=== PATIENT | female | born 1975 | race Caucasian/White ===

== ENCOUNTER → 2016-06-30 | Outpatient (CLI) | payer OTHER ==
[~2016-06-30] MED LIST: CEFD1CAP14 PO; CITA40TA12 PO; CLON0.5T3 PO; SYN25 PO; [UNRECOGNIZED DRUG - OTHER] PO
--- NOTE | 2016-06-30 10:05 | DIAGNOSTIC IMAGING REPORT ---
EXAMINATION: RENAL ULTRASOUND CLINICAL HISTORY: Recurrent urinary tract infection COMPARISON STUDY: None FINDINGS: The right kidney measures 10.2 cm. The left kidney measures 9.7 cm. There is no evidence of hydronephrosis. There are no renal masses. No bladder abnormalities are visualized. Bilateral ureteral jets were visualized. IMPRESSION : Normal study Electronically signed by: Charles Loaiza M.D. 06/30/2016 10:04 AM Dictated Date/Time: 06/30/2016 10:03 AM
== END | disposition home or self-care (01) ==
LOC: C.ULTR 09:15
PROVIDERS: ATTEND Nurse Practitioner Adult Health
DX: N39.0 Urinary tract infection, site not specified (principal)

== ENCOUNTER → 2016-07-01 | Outpatient (CLI) | payer OTHER ==
[2016-07-01 09:33] LABS: BASO % 0.2 %; BASO ABS # 0.01 K/uL (0-0.2); COMPLETE YES; EOS % 2.8 %; HEMATOCRIT 40.6 % (37-47); LYMPH % 34.9 %; LYMPH ABS # 1.86 K/uL (1.2-3.4); MEAN CELL VOLUME 94.4 fL (80-100); MEAN CORPUSCULAR HEMOGLOBIN 31.6 pg (25-34); MEAN CORPUSCULAR HGB CONC 33.5 g/dl (32-36); MEAN PLATELET VOLUME 10.6 fL (7.4-10.4); MONO % 11.3 %; NEUT % 50.8 %; PLATELET COUNT 271 K/uL (130-400); WHITE BLOOD COUNT 5.33 K/uL (4.8-10.8)
[2016-07-01 09:41] LABS: ALT/SGPT 20 U/L (12-78); BLOOD UREA NITROGEN 9 mg/dl (7-18); BUN/CREATININE RATIO 11.3 (10-20); CALCIUM 8.5 mg/dl (8.5-10.1); CARBON DIOXIDE 27 mmol/L (21-32); CHLORIDE 107 mmol/L (98-107); CHOLESTEROL 180 mg/dl (0-200); CREATININE 0.77 mg/dl (0.60-1.20); GLUCOSE 88 mg/dl (70-99); POTASSIUM 3.8 mmol/L (3.5-5.1); SODIUM 143 mmol/L (136-145)
[2016-07-01 09:51] LABS: ALKALINE PHOSPHATASE 51 U/L (45-117); AST/SGOT 14 U/L (15-37); CHOLESTEROL/HDL RATIO 1.7; HDL CHOLESTEROL 105 mg/dl; LDL CHOLESTEROL CALCULATED 65 mg/dl; TRIGLYCERIDES 49 mg/dl (0-150); VERY LOW DENSITY LIPOPROT CALC 10 mg/dl
[2016-07-01 09:55] LABS: PROLACTIN 29.12 ng/mL
[2016-07-01 10:13] LABS: URINE APPEARANCE TURBID (CLEAR); URINE BILIRUBIN NEG (NEG); URINE COLOR DK YELLOW; URINE EPITHELIAL CELL AUTO >30 /lpf (0-5); URINE NITRITE NEG (NEG); URINE SPECIFIC GRAVITY 1.027 (1.000-1.030); UROBILINOGEN NEG (NEG)
[2016-07-01 10:16] LABS: MANUAL MICROSCOPIC REQUIRED? NO; REVIEW REQ? NO
== END | disposition home or self-care (01) ==
LOC: C.LAB1850 07:37
PROVIDERS: ATTEND Nurse Practitioner Adult Health
DX: N39.0 Urinary tract infection, site not specified (principal); E03.9 Hypothyroidism, unspecified; Z31.41 Encounter for fertility testing

== ENCOUNTER → 2016-07-07 | Outpatient (CLI) | payer OTHER ==
--- NOTE | 2016-07-07 10:46 | DIAGNOSTIC IMAGING REPORT ---
HYSTEROSALPINGOGRAM CLINICAL HISTORY: Fertility testing. COMPARISON STUDY: No priors. FINDINGS: Fluoroscopic assistance was provided to the guide dog mobility instructor in performing a hysterosalpingogram. The uterine cavity distends normally. No filling defects are identified. There is normal filling of the fallopian tubes, with free spillage of contrast into pelvis bilaterally. Fluoroscopy time: 0.3 minutes. IMPRESSION: Unremarkable hysterosalpingogram. The fallopian tubes are widely patent bilaterally. Electronically signed by: Elmer Talamantes M.D. 07/07/2016 10:45 AM Dictated Date/Time: 07/07/2016 10:44 AM
--- NOTE | 2016-07-08 09:39 | OPERATIVE REPORT ---
DATE OF OPERATION: 07/08/2016 PREOPERATIVE DIAGNOSIS: Infertility. POSTOPERATIVE DIAGNOSIS: Same. PROCEDURE: Hysterosalpingogram. SURGEON: Dr. Vallecillo. PROCEDURE: The patient was met in the radiology suite where she was identified verbally and by casey. She was asked if she had taken her preoperative antibiotics and she had not. I discussed the patient with Jimmy Finney and he was okay with us proceeding. Verbal consent was obtained for the procedure. The patient was placed in the supine position in frogleg fashion. We needed to put her bottom on a pad in order to place the speculum because her cervix was quite anterior. Cervix was cleaned with Betadine. The anterior lip was grasped with an Allis and the catheter was introduced into the cervix. The radiologist was then called for. The radiopaque dye was then inserted into the uterus. The uterine cavity appeared normal. There was bilateral fill and spill and normal appearing tubes. The procedure was terminated. The instruments were removed from the vagina and hemostasis was noted to be excellent. The patient tolerated the procedure well and was sent home. She was advised to take her antibiotics. She was given precautions to call should she have problems. I attest to the content of the Intraoperative Record and any orders documented therein. Any exceptio ns are noted below.
== END | disposition home or self-care (01) ==
LOC: C.RAD 09:56
PROVIDERS: ATTEND Obstetrics & Gynecology
DX: Z31.41 Encounter for fertility testing (principal)

== ENCOUNTER → 2016-08-17 | Outpatient (CLI) | payer OTHER | END | disposition home or self-care (01) | LOC: C.LAB1850 13:40 | PROVIDERS: ATTEND Obstetrics & Gynecology | DX: R79.9 Abnormal finding of blood chemistry, unspecified (principal) ==

== ENCOUNTER 2016-11-30 18:19 | Emergency (ER) | payer OTHER ==
[~2016-11-30] VITALS: Ht 175.3 cm; Wt 75.0 kg
[~2016-11-30 18:19] MED LIST changes: -CEFD1CAP14 PO; -SYN25 PO; -[UNRECOGNIZED DRUG - OTHER] PO
[2016-11-30 18:24] VITALS: Ht 175.3 cm; Wt 75.0 kg
[2016-11-30] MEDS ORDERED: LORAZEPAM 2 MG/ML 1 ML VIAL IV STA (19:08)
[2016-11-30] MEDS ORDERED: SODIUM CHLORIDE 0.9% 1000ML 1,000 ML IV STA (19:08)
--- NOTE | 2016-11-30 19:20 | EMERGENCY ROOM VISIT NOTE ---
History Report prepared by Adebayo: Pati Thomas Under the Supervision of: Dr. Kyrie Campos M.D. First contact with patient: 19:03 Chief Complaint: DIZZY Stated Complaint: DIZZY-PASSING OUT-ARM&HANDS NUMB-BLAD INFECTION Nursing Triage Summary: Pt to triage in wheelchair, "I got a bladder infection while I was working and then I got real dizzy. I passed out a couple of times'. Pt reports syncopal episodes, "I feel like I'm drunk". Pt took 2 Pamprins and Azo today. Symptoms ongoing since 1300. c/o urinary frequency and urgency. Pt currenlty on period. 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 The patient was at work when she started feeling dizzy. Her face felt "weird" and her hands started to become numb. She lost consciousness several times. She remembers passing out. She is having heart palpitations. She was unable to remember her coworker's name today. She thinks she is having a panic attack. She currently has a UTI. She reports dysuria. She denies having any chest pain, SOB, or other pain. She is currently on her period. She notes that she does not drink enough water. She has a history of hypothyroidism and has been taking her medications. She has not gotten her thyroid checked in a while. 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 Review of Systems See HPI for pertinent positives & negatives. A total of 10 systems reviewed and were otherwise negative. Past Medical & Surgical Medical Problems: (1) Hypothyroidism Family History Diabetes mellitus FH: lung disease FHx: cancer FHx: gallbladder disease FHx: heart disease Hypertension Social History Smoking Status: Light Tobacco Smoker Marital Status: Occupation Status: employed Current/Historical Medications Scheduled Cefdinir (Omnicef), 300 MG PO Q12H Letrozole (Femara), 2.5 MG PO DIRECTED Levothyroxine Sodium (Synthroid), 25 MCG PO QAM Allergies Coded Allergies: Pseudoephedrine (Unverified Allergy, Unknown, HEART PALPATATIONS, 11/30/16) Sulfa Antibiotics (Unverified Allergy, Unknown, HIVES, 11/30/16) Physical Exam Vital Signs Date Time Temp Pulse Resp B/P (MAP) Pulse Ox O2 Delivery O2 Flow Rate FiO2 11/30/16 23:55 36.7 60 18 93/59 98 11/30/16 23:51 60 18 93/59 98 Room Air 11/30/16 21:46 58 16 103/67 98 Room Air 11/30/16 20:45 67 16 99/63 95 Room Air 11/30/16 20:20 66 11/30/16 19:48 83 16 96/71 99 Room Air 11/30/16 18:24 36.7 83 16 133/83 97 Room Air Physical Exam GENERAL: Patient is severely anxious appearing and in moderate distress, crying HEENT: No acute trauma, normocephalic atraumatic, mucous membranes moist, no nasal congestion, no scleral icterus. NECK: No stridor, no adenopathy, no meningismus, trachea is midline. LUNGS: No dyspnea. Clear to auscultation and equal bilaterally. No wheeze, no rhonchi. HEART: Regular rate and rhythm. No murmurs, rubs, gallops appreciated. ABDOMEN: Soft, nontender, bowel sounds positive, no masses appreciated, no peritonitis. BACK: No midline tenderness, no CVA tenderness EXTREMITIES: Normal motion all extremities, no cyanosis, no edema. NEUROLOGIC: Alert and oriented, no acute motor or sensory deficits, no focal weakness, cranial nerves grossly intact. SKIN: No jaundice, no diaphoresis. Flushed face with some hives over the upper lip. Medical Decision & Procedures ER Provider Diagnostic Interpretation: Radiology results and stated below per my review and radiologist interpretation: MRI OF THE BRAIN WITHOUT AND WITH IV CONTRAST CLINICAL HISTORY: Migratory neurological abnormalities. Left-sided facial numbness. Arm numbness. COMPARISON STUDY: No previous studies for comparison. TECHNIQUE: MRI of the brain was performed from the vertex to the skull base utilizing various T1 and T2 weighted sequences. Following the IV administration of 7.5 mL of Gadavist contrast, additional enhanced images were obtained. FINDINGS: Sagittal T1, axial diffusion, proton density and T2 weighted axial, coronal FLAIR, and pre and post axial T1-weighted images were acquired. These were supplemented with post gadolinium coronal T1 weighted images. No intra or extra-axial mass lesions are visualized. Axial diffusion-weighted images reveal no evidence of acute or subacute infarction. There is no evidence of ventricular dilatation. Proton density T2-weighted and FLAIR images reveal scattered foci of increased T2 signal within the white matter, likely on a small vessel basis. There are no abnormal flow voids. There is a small fatty lesion of the clivus, a finding of doubtful clinical significance. There is no evidence of pathologic enhancement. IMPRESSION: Normal MRI of the brain Electronically signed by: Charles Loaiza M.D. 11/30/2016 10:47 PM Dictated Date/Time: 11/30/2016 10:45 PM Laboratory Results 11/30/16 19:40 Red Blood Count 4.31, Mean Corpuscular Volume 94.9, Mean Corpuscular Hemoglobin 31.8, Mean Corpuscular Hemoglobin Concent 33.5, Mean Platelet Volume 9.8, Neutrophils (%) (Auto) 57.2, Lymphocytes (%) (Auto) 30.2, Monocytes (%) (Auto) 10.9, Eosinophils (%) (Auto) 1.3, Basophils (%) (Auto) 0.3, Neutrophils # (Auto ) 3.88, Lymphocytes # (Auto) 2.05, Monocytes # (Auto) 0.74, Eosinophils # (Auto ) 0.09, Basophils # (Auto) 0.02 11/30/16 19:40 Test 11/30/16 19:40 White Blood Count 6.79 K/uL (4.8-10.8) Red Blood Count 4.31 M/uL (4.2-5.4) Hemoglobin 13.7 g/dL (12.0-16.0) Hematocrit 40.9 % (37-47) Mean Corpuscular Volume 94.9 fL (80-100) Mean Corpuscular Hemoglobin 31.8 pg (25-34) Mean Corpuscular Hemoglobin Concent 33.5 g/dl (32-36) Platelet Count 266 K/uL (130-400) Mean Platelet Volume 9.8 fL (7.4-10.4) Neutrophils (%) (Auto) 57.2 % Lymphocytes (%) (Auto) 30.2 % Monocytes (%) (Auto) 10.9 % Eosinophils (%) (Auto) 1.3 % Basophils (%) (Auto) 0.3 % Neutrophils # (Auto) 3.88 K/uL (1.4-6.5) Lymphocytes # (Auto) 2.05 K/uL (1.2-3.4) Monocytes # (Auto) 0.74 K/uL (0.11-0.59) Eosinophils # (Auto) 0.09 K/uL (0-0.5) Basophils # (Auto) 0.02 K/uL (0-0.2) RDW Standard Deviation 43.0 fL (36.4-46.3) RDW Coefficient of Variation 12.3 % (11.5-14.5) Immature Granulocyte % (Auto) 0.1 % Immature Granulocyte # (Auto) 0.01 K/uL (0.00-0.02) Urine Color DK YELLOW Urine Appearance CLEAR (CLEAR) Urine pH 6.5 (4.5-7.5) Urine Specific [place] 1.009 (1.000-1.030) Urine Protein NEG (NEG) Urine Glucose (UA) NEG (NEG) Urine Ketones NEG (NEG) Urine Occult Blood 2+ (NEG) Urine Nitrite POS (NEG) Urine Bilirubin NEG (NEG) Urine Urobilinogen NEG (NEG) Urine Leukocyte Esterase MODERATE (NEG) Urine WBC (Auto) 10-30 /hpf (0-5) Urine RBC (Auto) 0-4 /hpf (0-4) Urine Hyaline Casts (Auto) 0 /lpf (0-5) Urine Epithelial Cells (Auto) 10-20 /lpf (0-5) Urine Bacteria (Auto) 1+ (NEG) Urine Test NEG (NEG) Anion Gap 9.0 mmol/L (3-11) Est Creatinine Clear Calc Drug Dose 96.3 ml/min Estimated GFR () 104.5 Estimated GFR (Non- 90.1 BUN/Creatinine Ratio 12.9 (10-20) Calcium Level 8.8 mg/dl (8.5-10.1) Magnesium Level 2.0 mg/dl (1.8-2.4) Troponin I < 0.015 ng/ml (0-0.045) Thyroid Stimulating Hormone (TSH) 1.590 uIu/ml (0.300-4.500) Free Thyroxine 1.11 ng/dl (0.80-1.60) Human Chorionic Gonadotropin, Qual NEG (NEG) Lyme Disease IgG Antibody NEG (NEG) Lyme Disease IgM Antibody NEG (NEG) Laboratory results as reviewed by me. Medications Administered Medications (Trade) Dose Ordered Sig/Fredis Route Start Time Stop Time Status Last Admin Dose Admin Sodium Chloride 1,000 ml @ 999 mls/hr Q1H1M STAT IV 11/30/16 19:08 11/30/16 20:08 DC 11/30/16 19:48 999 MLS/HR Lorazepam (Ativan Inj) 1 mg NOW STAT IV 11/30/16 19:08 11/30/16 19:10 DC 11/30/16 19:48 1 MG Ceftriaxone Sodium (Rocephin Inj) 1 gm NOW STAT IV 11/30/16 21:06 11/30/16 21:08 DC 11/30/16 21:46 1 GM Lorazepam (Ativan 1MG Home Pack) 1 homepack UD ONCE PO 11/30/16 23:30 11/30/16 23:31 DC 11/30/16 23:47 1 HOMEPACK ECG Indication: syncope Rate (beats per minute): 72 Rhythm: normal sinus Findings: no acute ischemic change, no ectopy ED Course 1902: The patient was evaluated in room B4. A complete history and physical exam was performed. 1907: Lorazepam 1 mg IV, NSS 1000 ml @ 999 mls/hr IV. 1929: I reevaluated the patient. She notes she had multiple tick bites with joint aches over the past week. 2046: I reevaluated the patient. She no longer has twitching of the face. She notes that the world just doesnt seem to be correct in her vision. I discussed the pros and cons of MRI and she agrees. 2105: Rocephin Inj 1 gm IV. 2314: I reevaluated the patient. I discussed results and discharge instructions : she verbalized understanding and agreement. The patient is ready for discharge. 2329: Lorazepam 1 homepack PO. Medical Decision Differential: Vaso-vagal, Intracerebral Event, Neurologic, Infectious, Volume Deficiency, Hypoglycemia, Electrolyte Abnormality, Cardiac Source, Toxicologic, amongst other pathologies entertained. Medication Reconciliation: I attest that I have personally reviewed the patient 's current medication list. Blood pressure screening: Patient was found to have normal blood pressure on screening and does not require follow-up. 41 yr old very anxious/upset female arrives after near syncopal event. Full anxiety attack on arrival though she has this twitching of left face of uncertain etiology. Also notes diffuse paraesthesias, joint pains, and weakness. This was all preceded by UTI symptoms, minimal fluid intake over last few days. She does not appear septic and labs look OK. She does have what appears to be UTI given her symptoms. She has chronic UTI issues with multiple previous treatments. Attempting thus will avoid fluoroquinolones, allergic to Sulfa, and with concern for possible pyelo will treat with cephalosporins. Previously on Keflex thus will bump to Omnicef. With her neuro symptoms I feel I have no choice but to get MRI brain and to rule out MS evidence us IV contrast as well. Hydrated and MRI done which was fortunately normal. With symptoms improving I feel further monitoring at home necessary. Will send home with a few ativan in cause further anxiety. Worsening or other concerning symptoms RTED. Impression Primary Impression: Urinary tract infection Additional Impressions: Dizziness Facial paresthesia Paresthesia of hand, bilateral Scribe Attestation The scribe's documentation has been prepared under my direction and personally reviewed by me in its entirety. I confirm that the note above accurately reflects all work, treatment, procedures, and medical decision making performed by me. Departure Information Dispostion Home / Self-Care Prescriptions Cefdinir (Omnicef) 300 Mg Cap 300 MG PO Q12H for 10 Days, #20 CAP Prov: Kyrie Campos M.D. 11/30/16 Referrals Yahaira Nuñez C.R.N.PSanto (PCP) Patient Instructions [facility], UTI Additional Instructions You have received a benzodiazepine medication. Take half a tablet as needed every 4 to 6 hours if anxious. These medications may cause drowsiness and should not be used with other sedative medications. Do not drive, drink alcohol , perform dangerous activities, nor make important decisions after taking these medications. Problem Qualifiers
[2016-11-30] MEDS ORDERED: SYN25 PO (19:22)
[2016-11-30] MEDS ORDERED: [UNRECOGNIZED DRUG - OTHER] PO (19:23)
[2016-11-30 19:58] LABS: BASO % 0.3 %; BASO ABS # 0.02 K/uL (0-0.2); COMPLETE YES; EOS % 1.3 %; HEMATOCRIT 40.9 % (37-47); IG% 0.1 %; LYMPH % 30.2 %; LYMPH ABS # 2.05 K/uL (1.2-3.4); MEAN CELL VOLUME 94.9 fL (80-100); MEAN CORPUSCULAR HEMOGLOBIN 31.8 pg (25-34); MEAN CORPUSCULAR HGB CONC 33.5 g/dl (32-36); MEAN PLATELET VOLUME 9.8 fL (7.4-10.4); MONO % 10.9 %; NEUT % 57.2 %; PLATELET COUNT 266 K/uL (130-400); RED BLOOD COUNT 4.31 M/uL (4.2-5.4); WHITE BLOOD COUNT 6.79 K/uL (4.8-10.8)
[2016-11-30 20:09] LABS: URINE APPEARANCE CLEAR (CLEAR); URINE BILIRUBIN NEG (NEG); URINE COLOR DK YELLOW; URINE NITRITE POS (NEG); URINE PH 6.5 (4.5-7.5); URINE SPECIFIC GRAVITY 1.009 (1.000-1.030); UROBILINOGEN NEG (NEG); ZZUR CULT IF INDIC CLEAN CATCH YES
[2016-11-30 20:22] LABS: BLOOD UREA NITROGEN 11 mg/dl (7-18); BUN/CREATININE RATIO 12.9 (10-20); CALCIUM 8.8 mg/dl (8.5-10.1); CHLORIDE 104 mmol/L (98-107); CREATININE 0.82 mg/dl (0.60-1.20); GLUCOSE 99 mg/dl (70-99); POTASSIUM 3.4 mmol/L (3.5-5.1); SODIUM 139 mmol/L (136-145)
[2016-11-30 20:26] LABS: MANUAL MICROSCOPIC REQUIRED? NO; REVIEW REQ? YES
[2016-11-30 20:28] LABS: CARBON DIOXIDE 26 mmol/L (21-32)
[2016-11-30 20:29] LABS: PREG INTERNAL NEGATIVE QC NEG CLEAR BACKGROUND; PREG INTERNAL POSITIVE QC POS CONTROL LINE
[2016-11-30 20:55] LABS: LYME DISEASE AB IGG NEG (NEG); LYME DISEASE AB IGM NEG (NEG)
[2016-11-30] MEDS ORDERED: CEFTRIAXONE SOD INJ 1 GM ADDVIAL IV STA (21:06)
[2016-11-30] MEDS ORDERED: GADAVIST IV PRN (22:45)
--- NOTE | 2016-11-30 22:49 | DIAGNOSTIC IMAGING REPORT ---
MRI OF THE BRAIN WITHOUT AND WITH IV CONTRAST CLINICAL HISTORY: Migratory neurological abnormalities. Left-sided facial numbness. Arm numbness. COMPARISON STUDY: No previous studies for comparison. TECHNIQUE: MRI of the brain was performed from the vertex to the skull base utilizing various T1 and T2 weighted sequences. Following the IV administration of 7.5 mL of Gadavist contrast, additional enhanced images were obtained. FINDINGS: Sagittal T1, axial diffusion, proton density and T2 weighted axial, coronal FLAIR, and pre and post axial T1-weighted images were acquired. These were supplemented with post gadolinium coronal T1 weighted images. No intra or extra-axial mass lesions are visualized. Axial diffusion-weighted images reveal no evidence of acute or subacute infarction. There is no evidence of ventricular dilatation. Proton density T2-weighted and FLAIR images reveal scattered foci of increased T2 signal within the white matter, likely on a small vessel basis. There are no abnormal flow voids. There is a small fatty lesion of the clivus, a finding of doubtful clinical significance. There is no evidence of pathologic enhancement. IMPRESSION: Normal MRI of the brain Electronically signed by: Charles Loaiza M.D. 11/30/2016 10:47 PM Dictated Date/Time: 11/30/2016 10:45 PM
[2016-11-30] MEDS ORDERED: CEFD1CAP14 PO (23:23)
[2016-11-30] MEDS ORDERED: ATIVAN 1MG HOMEPACK PO ONE (23:30)
[2016-11-30 23:55] VITALS: BP 93/59; PULSE 60; TEMP 36.7; O2SAT 98
== END 2016-11-30 23:50 | disposition home or self-care (01) ==
LOC: C.EDB 18:22
DX: N39.0 Urinary tract infection, site not specified (principal); R42 Dizziness and giddiness; R20.9 Unspecified disturbances of skin sensation; F41.9 Anxiety disorder, unspecified; R00.2 Palpitations; E03.9 Hypothyroidism, unspecified; Z83.3 Family history of diabetes mellitus; Z80.9 Family history of malignant neoplasm, unspecified; Z82.49 Family history of ischemic heart disease and other diseases of the circulatory system; F17.210 Nicotine dependence, cigarettes, uncomplicated; Z79.899 Other long term (current) drug therapy

== ENCOUNTER → 2017-02-23 | Outpatient (CLI) | payer OTHER ==
[~2017-02-23] MED LIST changes: -CITA40TA12 PO; -CLON0.5T3 PO; +SYN25 PO; +[UNRECOGNIZED DRUG - OTHER] PO
== END | disposition home or self-care (01) ==
LOC: C.PATHSPEC 17:10
PROVIDERS: ATTEND Nurse Practitioner Adult Health
DX: R31.0 Gross hematuria (principal); N39.0 Urinary tract infection, site not specified

== ENCOUNTER 2025-03-07 12:01 | Observation (INO) ==
--- NOTE | 2025-03-07 14:14 | XRay Report ---
XR chest 1V portable CLINICAL HISTORY: dizziness COMPARISON STUDY: None FINDINGS: Heart size and pulmonary vasculature are normal. No consolidation or pleural effusion. No p neumothorax. There is mild scoliosis. IMPRESSION: No acute findings. ACT 112: Negative or not required by law. Electronically signed by: Mikel Lopez M.D. 03/07/2025 2:13 PM
--- NOTE | 2025-03-07 14:16 | Emergency Department Note ---
Impression & Plan Vertigo, Dizziness ED Provider Note CHIEF COMPLAINT: Vertigo, hip replacement 02/15 HISTORY OF PRESENTING ILLNESS: The patient is a 49-year-old female with a PMH hypothyroidism and right hip replacement who presents to the emergency department due to vertigo that began yesterday. She describes waking up and feeling extremely dizzy as if the room was spinning and she was going to pass out. She did take decc-xgo-vyvojqu meclizine which initially improved her symptoms but when she lied down for bed that evening symptoms got much worse. This morning she woke up and her symptoms had not improved. She describes the dizziness as positional and she is fine when she is standing but when she tries to walk, turn her head quickly, or lie down experiences immediate vertigo. She has not taken anything today for symptoms. She does report hip replacement on 02/15 and she is concerned with the vertigo that she may fall. She does live at home with her and her mother. Also notes wearing a collagen patch on the right hip for the last 4 days and is not sure if this would be causing her symptoms. She denies fever, URI symptoms, nausea, vomiting, chest pain, shortness of breath, abdominal pain, urinary symptoms. REVIEW OF SYSTEMS: See HPI for pertinent positives and pertinent negatives. ALLERGIES: Pseudoephedrine, sulfa antibiotics MEDICATIONS: See below PAST MEDICAL HISTORY: See below PHYSICAL EXAM: VITALS: Vitals are noted on the nurses note and reviewed by myself. Vital signs stable. GENERAL: 49-year-old female, lying in bed in a dark room, in no acute distress, nondiaphoretic, well-developed well-nourished. SKIN: Capillary refill less than 2 seconds. HEENT: Normocephalic. PERRLA. EOMI. No nystagmus. Nares patent. Mucous membranes moist. Neck is supple without nuchal rigidity. TM visualized bilaterally without abnormality. HEART: Regular rate and rhythm without murmurs gallops or rubs. LUNGS: CTA BL without wheezes, rales or rhonchi. No retractions or accessory muscle use. MUSCULOSKELETAL: No gross musculoskeletal defects. Recent right hip replacement and right hip pain. NEURO: Patient was alert and oriented to person place and time. No focal neurological deficits. DIFFERENTIAL DIAGNOSIS: BPPV, vestibular neuritis, labyrinth [place], Mnire's disease, acoustic neuroma, TIA, migraine, orthostatic hypotension, anemia, anxiety, medication induced, among others. ED COURSE AND MEDICAL DECISION MAKING: HISTORY FROM INDEPENDENT HISTORIAN: The patient herself. MEDICATIONS GIVEN: Normal saline, meclizine 25 mg PO, Valium 10 mg IV, Decadron 10 mg IV MONITOR: Continuous vehicle monitor technician: Order was placed for continuous vehicle monitor technician. Patient was placed on the vehicle monitor technician and continuous pulse ox. Patient was noted to be in normal sinus rhythm at an initial rate of 78 bpm per my interpretation. EKG: EKG was interpreted by myself as normal sinus rhythm. No obvious arrhythmia. No ST or T wave abnormality. OR interval 152 ms. QT interval 435 ms. No significant change compared to previous EKG from 11/30/2016. INTERPRETATION OF LABS: I interpreted the labs with full lab results as below in the lab section of this note. Pertinent lab results discussed in the MDM section below. INTERPRETATION OF IMAGING: Imaging studies were interpreted by myself and read by radiology as per the imaging section of this note. Chest x-ray - No acute cardiopulmonary finding. CONSULTATIONS: On-call [facility] hospitalist - Presented the patient to the provider and discussed no improvement of vertigo here in the ER with 1 L normal saline, meclizine, Valium, and Decadron. Patient had a recent hip replacement on 02/15 and is having difficulty ambulating with a walker due to the dizziness. They agreed to evaluated the patient and admitting her to medicine. MDM SUMMARY: I evaluated the 49-year-old female who presents to the ER due to vertigo-like dizziness that began yesterday. See HPI and PE above. Patient's vitals are stable. EKG obtained initial rate 78 bpm normal sinus rhythm. 1 L normal saline and meclizine given. Labs obtained showing no leukocytosis. Hemodynamically stable. Coagulation panel within normal limits. No electrolyte abnormality. No RYLEY. Chest x-ray shows no acute abnormality. All laboratory and imaging results reviewed with the patient. On reevaluation patient's symptoms have mildly improved however she is still significantly dizzy upon changing positions and moving her head. Additionally Valium and Decadron were given for management. I reevaluated the patient an hour later where I woke her up and she rolled over in bed experiencing significant dizziness again. She does report that she was able to ambulate to the restroom to give the urine sample however she was wobbly. Due to recent history of hip replacement, ambulating with a walker, and persistent vertigo despite treatment a consultation with the on-call [facility] hospitalist can be seen in detail above. They are agreeable to admitting to medicine. Patient is also agreeable to admission and all questions answered. The patient was admitted in stable condition. DIAGNOSIS: Vertigo, dizziness The chart was completed utilizing [employer] Speech voice recognition software. Grammatical errors, random word insertions, pronoun errors, and incomplete sentences are an occasional consequence of this system due to software limitations, ambient noise, and hardware issues. Any formal questions or concerns about the content, text, or information contained within the body of this dictation should be directly addressed to the provider for clarification. Past Med/Surg History Problem List Dizziness (Acute) Vertigo (Acute) Hypothyroidism (Chronic) Surgical History History of colonoscopy History of total right hip arthroplasty 01/2025. [facility] - Dr Haque Family History Other Cancer Social History Smoking Status: Current every day smoker Tobacco Type: E-cigarettes / Vaping Hx Alcohol Use: No Hx Substance Use: No Feels Safe at Home: Yes Allergies Allergies Allergy/AdvReac Type Severity Reaction Status Date / Time pseudoephedrine Allergy Unknown HEART Unverified 11/30/16 19:21 PALPATATIONS Sulfa (Sulfonamide Allergy Unknown HIVES Unverified 11/30/16 19:21 Antibiotics) Home Meds Home Medications Medication Instructions Recorded Confirmed aspirin 81 mg tablet,delayed 81 mg PO BID 03/07/25 03/07/25 release levothyroxine 50 mcg tablet 50 mcg PO DAILY 03/07/25 03/07/25 lorazepam 0.5 mg tablet 0.5 mg PO TID PRN Panic Attack(S) 03/07/25 03/07/25 tramadol 50 mg tablet 50 mg PO Q6H PRN Severe Pain 03/07/25 03/07/25 (Scale Score 7-10) Results & Data (ED) Vital Signs Vital Signs - 24 hr 03/07/25 12:20 03/07/25 14:30 03/07/25 15:00 Temperature 36.4 C L Temperature Source Temporal Artery Scan Pulse Rate 79 60 Pulse Rate [Apical] 69 Pulse Rate from SpO2 Sensor 60 Respiratory Rate 18 20 21 Respiratory Effort / Characteristics Non-Labored Non-Labored Spontaneous Respiratory Depth Normal Normal Respiratory Pattern Regular Regular Blood Pressure 100/52 L 108/60 Blood Pressure [Right Arm] 116/62 Blood Pressure Mean 68 69 Blood Pressure Mean [Right Arm] 80 Blood Pressure Position [Right Arm] Lying Pulse Oximetry 100 98 100 Oxygen Delivery Method Room Air Room Air Sepsis Recent Fever Within 48 Hours No Sepsis New/Unexplained Change in Mental Status N/A Sepsis Action Taken by Nursing No Action Required 03/07/25 15:35 03/07/25 16:00 03/07/25 16:09 Temperature Temperature Source Pulse Rate 65 63 63 Pulse Rate [Apical] Pulse Rate from SpO2 Sensor 60 64 Respiratory Rate 27 H 18 Respiratory Effort / Characteristics Respiratory Depth Respiratory Pattern Blood Pressure 105/57 L 109/63 Blood Pressure [Right Arm] Blood Pressure Mean 73 78 Blood Pressure Mean [Right Arm] Blood Pressure Position [Right Arm] Pulse Oximetry 98 98 Oxygen Delivery Method Sepsis Recent Fever Within 48 Hours Sepsis New/Unexplained Change in Mental Status Sepsis Action Taken by Nursing 03/07/25 17:00 03/07/25 18:00 Temperature Temperature Source Pulse Rate 59 L 69 Pulse Rate [Apical] Pulse Rate from SpO2 Sensor 59 L 68 Respiratory Rate 16 18 Respiratory Effort / Characteristics Respiratory Depth Respiratory Pattern Blood Pressure 97/54 L 100/57 L Blood Pressure [Right Arm] Blood Pressure Mean 72 71 Blood Pressure Mean [Right Arm] Blood Pressure Position [Right Arm] Pulse Oximetry 99 96 Oxygen Delivery Method Sepsis Recent Fever Within 48 Hours Sepsis New/Unexplained Change in Mental Status Sepsis Action Taken by Nursing Laboratory Data 03/07/25 13:39 03/07/25 13:39 Lab Results 03/07/25 03/07/25 Range/Units 13:39 16:45 WBC 6.01 (4.8-10.8) K/ul RBC 4.68 (4.20-5.40) M/uL Hgb 14.3 (12.0-16.0) g/dl Hct 45.2 (37.0-47.0) % MCV 96.6 (80.0-100.0) fL MCH 30.6 (25.0-34.0) pg MCHC 31.6 L (32.0-36.0) g/dL RDW Std Deviation 44.2 (36.4-46.3) fL RDW Coeff of John 12.4 (11.5-14.5) % Plt Count 439 H (130-400) K/uL MPV 9.4 (9.4-12.4) fL Immature Gran % (Auto) 0.3 % Neut % (Auto) 56.6 % Lymph % (Auto) 31.6 % [place] % (Auto) 9.2 % Eos % (Auto) 2.0 % Baso % (Auto) 0.3 % Neut # (Auto) 3.40 (1.40-6.50) K/uL Lymph # (Auto) 1.90 (1.20-3.40) K/uL [place] # (Auto) 0.55 (0.11-0.59) K/uL Eos # (Auto) 0.12 (0.00-0.50) K/uL Baso # (Auto) 0.02 (0.00-0.20) K/uL Immature Gran # (Auto) 0.02 (0.01-0.20) K/uL PT 10.9 (9.0-12.0) Seconds INR 1.0 (0.9-1.1) APTT 25 (21-31) Seconds PTT Ratio 0.9 Sodium 141 (136-145) mmol/L Potassium 3.9 (3.5-5.1) mmol/L Chloride 105 (98-107) mmol/L Carbon Dioxide 27 (21-32) mmol/L Anion Gap 9 (3-11) BUN 8 (6-23) mg/dl Creatinine 0.61 (0.6-1.2) mg/dl Est Cr Clr Drug Dosing Not Reportable eGFR 110.90 BUN/Creatinine Ratio 13.1 (10-20) Glucose 63 L (70-99(Fasting)) mg/dl Calcium 9.9 (8.6-10.3) mg/dl Total Bilirubin 0.3 (0.2-1.0) mg/dl AST 26 (13-39) U/L ALT 43 (7-52) U/L Alkaline Phosphatase 81 (34-104) U/L Total Protein 8.0 (6.0-8.3) gm/dl Albumin 4.1 (3.4-5.0) gm/dl Globulin 3.9 (2.5-4.0) gm/dl Albumin/Globulin Ratio 1.1 (0.9-2) Urine Color Yellow Urine Appearance Clear (Clear) Urine pH 5.5 (4.5-7.5) Ur Specific [place] 1.009 (1.000-1.030) Urine Protein Negative (Negative) Urine Glucose (UA) Negative (Negative) Urine Ketones Negative (Negative) Urine Blood Negative (Negative) Urine Nitrite Negative (Negative) Urine Bilirubin Negative (Negative) Urine Urobilinogen Negative (Negative) Ur Leukocyte Esterase 1+ H (Negative) Urine WBC (Auto) 0-5 (0-5) /hpf Urine RBC (Auto) 0-2 (0-2) /hpf U Hyaline Cast (Auto) 0-2 (0-2) /lpf U Epithel Cells (Auto) 0-2 (0-2) /hpf Urine Bacteria (Auto) None Seen (None Seen) Urine Comment Administered Medications Acetaminophen (Acetaminophen 500 Mg Tab) 1,000 mg PO Q8H UMBERTO Stop: 04/06/25 20:25 Last Admin: 03/07/25 20:39 Dose: 1,000 mg Documented By: QGV Aspirin (Aspirin 81 Mg Ectab) 81 mg PO BID UMBERTO Stop: 04/06/25 20:59 Last Admin: 03/07/25 20:39 Dose: 81 mg Documented By: QGV Meclizine HCl (Meclizine Hcl 25 Mg Tab) 25 mg PO TID UMBERTO Stop: 04/06/25 20:59 Last Admin: 03/07/25 20:39 Dose: 25 mg Documented By: QGV Discontinued Medications Dexamethasone Sodium Phosphate (DexamethasonePf 10 Mg/Ml Vial) 10 mg IV NOW ONE Stop: 03/07/25 16:04 Last Admin: 03/07/25 16:22 Dose: 10 mg Documented By: ARISTIDES Diazepam (Diazepam Inj 5 Mg/Ml 2 Ml Carp) 10 mg IV NOW ONE Stop: 03/07/25 16:04 Last Admin: 03/07/25 16:22 Dose: 10 mg Documented By: ARISTIDES Sodium Chloride (Nss) 1,000 mls @ 999 mls/hr IV .Q1H1M ONE Stop: 03/07/25 15:16 Last Infusion: 03/07/25 16:49 Dose: Infused Documented By: Admin: 03/07/25 14:26 Dose: 999 mls/hr Documented By: VALERIA Meclizine HCl (Meclizine Hcl 25 Mg Tab) 25 mg PO NOW STA Stop: 03/07/25 14:17 Last Admin: 03/07/25 14:26 Dose: 25 mg Documented By: VALERIA Imaging Data Radiologist's Impression: Chest X-Ray 03/07/25 12:25 XR chest 1V portable CLINICAL HISTORY: dizziness COMPARISON STUDY: None FINDINGS: Heart size and pulmonary vasculature are normal. No consolidation or pleural effusion. No pneumothorax. There is mild scoliosis. IMPRESSION: No acute findings. ACT 112: Negative or not required by law. Electronically signed by: Mikel Lopez M.D. 03/07/2025 2:13 PM Discharge Plan Visit Data Chief Complaint: Vertigo Stated Complaint: VERTIGO, HIP REPLACENT 02/15 ED Provider: Shell Rodríguez ED Midlevel Provider: Pebbles Lu Discharge Problem: Vertigo, Dizziness Patient Disposition: Admitted As Inpatient Condition: Good Discharge Instructions Interventions: ED Discharge Assessment Last Done: 03/07/25 21:32
[2025-03-07 14:18] LABS: Hematocrit (blood only) 45.2 % (37.0-47.0); Hemoglobin 14.3 g/dl (12.0-16.0); Immature Granulocytes # (auto) 0.02 K/uL (0.01-0.20); Immature Granulocytes % (auto) 0.3 %; Mean Corpuscular Hemoglobin 30.6 pg (25.0-34.0); Mean Corpuscular Volume 96.6 fL (80.0-100.0); Platelet Count 439 K/uL (130-400); RDW Standard Deviation 44.2 fL (36.4-46.3); Red Blood Count 4.68 M/uL (4.20-5.40); White Blood Count 6.01 K/ul (4.8-10.8)
[2025-03-07] MEDS: SODIUM CHLORIDE 0.9% 1,000 ML IV ONE (14:26)
[2025-03-07] MEDS: MECLIZINE HCL 25 MG TAB PO STA (14:26)
[2025-03-07 14:32] LABS: Alanine Aminotransferase 43 U/L (7-52); Albumin Globulin Ratio 1.1 (0.9-2); Albumin Level 4.1 gm/dl (3.4-5.0); Alkaline Phosphatase 81 U/L (34-104); Anion Gap 9 (3-11); Bilirubin,Total 0.3 mg/dl (0.2-1.0); Blood Urea Nitrogen 8 mg/dl (6-23); Calcium 9.9 mg/dl (8.6-10.3); Carbon Dioxide 27 mmol/L (21-32); Chloride 105 mmol/L (98-107); Globulin 3.9 gm/dl (2.5-4.0); Glucose 63 mg/dl (70-99(Fasting)); Potassium 3.9 mmol/L (3.5-5.1); Sodium 141 mmol/L (136-145); Total Protein 8.0 gm/dl (6.0-8.3)
[2025-03-07 14:39] LABS: INR 1.0 (0.9-1.1); Partial Thromboplastin Time 25 Seconds (21-31); Prothrombin Time 10.9 Seconds (9.0-12.0)
[2025-03-07] MEDS: dexAMETHasone**PF** 10 MG/ML VIAL IV ONE (16:22)
[2025-03-07 17:03] LABS: Appearance Urine Clear (Clear); Bacteria Urine Automated None Seen (None Seen); Cast Urine Automated 0-2 /lpf (0-2); Epithelial Cell Urine Auto 0-2 /hpf (0-2); Glucose Urine UA Negative (Negative); RBC Urine Automated 0-2 /hpf (0-2); WBC Urine Automated 0-5 /hpf (0-5)
--- NOTE | 2025-03-07 18:03 | History & Physical Report ---
<Statement entered by Reji Matamoros, - 03/07/25 20:08> I have seen and examined the patient and have discussed the case with the advance practice provider. I have reviewed the advanced practitioner's documentation, and I agree with, and take responsibility for that plan of care. Patient's history classic for BPPV. Meclizine, Valium, PT eval for Dannie maneuvers Plan of care as outlined below I spent a total of 15 minutes coordinating, documenting, and providing care for this patient excluding time spent by another provider/QHP. Date of Service March 07, 2025 Assessment & Plan (1) Vertigo: (2) Dizziness: Plan: Patient is 49 year old female with PMH panic attacks, hypothyroidism presented to ER with c/o dizziness x 1 day. Patient states yesterday started with dizziness described as "spinning" sensation with movement of head. denies head injury, N/V In ER noted low BP's (pt reports chronic low BP), other vitals stable Random glucose: 63 noted on labs. Repeat BSG 109 at 18:53 after eating crackers, peanut and jelly In ER given 1L NSS, meclizine, diazepam 10mg IV, dexamethasone 10mg IV. Pt reports some improvement and able to turn head now without as much dizziness but still describes spinning sensation. Concern for fall with recent hip replacement Suspect benign positional vertigo with symptoms. Chronic low BP, may have some orthostatic component Obtain CT head Start meclizine scheduled and Valium prn PT eval for consideration Dannie maneuver Fall precautions CBC, BMP in am (3) History of total right hip arthroplasty: Plan: 02/15/25 right hip arthroplasty by Dr Haque On aspirin 81mg BID for DVT prophylaxis Scheduled Tylenol Continue home Ibuprofen, Tramadol prn Fall precautions (4) Hypothyroidism: Plan: TSH in am Continue levothyroxine DVT Prophylaxis SCDs Admit med surg Full code Follows with Dr Kang for routine care Pt was seen and care coordinated with Dr Matamoros. See addendum I spent a total of 65 minutes reviewing notes, outpatient records, labs, medication, coordinating, documenting and providing care for this patient excluding time spent in the performance of separately billed services and excluding time spent by another provider/QHP. History of Present Illness Chief Complaint: Dizziness Primary Care Provider: Pawan Kang Patient is 49 year old female with PMH panic attacks, hypothyroidism presented to ER with c/o dizziness x 1 day. Patient states yesterday started with dizziness described as "spinning" sensation with movement of head. Tried OTC mec lizine with some relief. Patient reports history right hip arthro[place] on 02/15/[address] [place] [facility] [place] States doing well after hip surgery and pain has decreased and she has stopped Celebrex and now using ibuprofen as needed and Tylenol as needed. States using Tramadol less frequently also. She has been applying collagen patch for past 4 days at [facility]. Denies head injury or fall or history of vertigo. Patient states today with intermittent sharp pains at base of head. She reports some blurry vision and is to use reading glasses but doesn't use regularly, otherwise denies visual disturbance. Had some constipation post op but reports good BM yesterday. Denies fever/chills, diaphoresis, N/V/D, syncope, neck pain, CP, SOB, palpitations, cough, sore throat, rhinorrhea, abdominal pain, paresthesias, weakness, extremity weakness, extremity edema, rashes, urinary symptoms. Allergies Allergy/AdvReac Type Severity Reaction Status Date / Time pseudoephedrine Allergy Unknown HEART Unverified 11/30/16 19:21 PALPATATIONS Sulfa (Sulfonamide Allergy Unknown HIVES Unverified 11/30/16 19:21 Antibiotics) Home Medications Medication Instructions Recorded Confirmed Type aspirin 81 mg tablet,delayed 81 mg PO BID 03/07/25 03/07/25 History release levothyroxine 50 mcg tablet 50 mcg PO DAILY 03/07/25 03/07/25 History lorazepam 0.5 mg tablet 0.5 mg PO TID PRN Panic Attack(S) 03/07/25 03/07/25 History tramadol 50 mg tablet 50 mg PO Q6H PRN Severe Pain 03/07/25 03/07/25 History (Scale Score 7-10) Past Med/Surg History Problem List (Updated 03/07/25 @ 18:44 by Pebbles Lu PA-C) Dizziness (Acute) Vertigo (Acute) Hypothyroidism (Chronic) Surgical History (Updated 03/07/25 @ 18:42 by Abbey Engel PA-C) History of colonoscopy History of total right hip [place] [facility] [place] Family History (Updated 03/07/25 @ 18:43 by Abbey Engel PA-C) Other Cancer Social History (Updated 03/07/25 @ 18:43 by Abbey Engel PA-C) Smoking Status: Current every day smoker Tobacco Type: E-cigarettes / Vaping Hx Alcohol Use: No Hx Substance Use: No Feels Safe at Home: Yes Review of Systems Review of Systems: All systems reviewed & are unremarkable except as noted in HPI & below Physical Exam Physical Exam: General: no distress, WDWN Head: normocephalic, atraumatic Eyes: PERRL, EOM's intact, conjunctiva non-injected, anicteric ENT: normal inspection external ears, nose, mucous membranes moist Neck: supple, trachea midline Lungs: clear, no respiratory distress, no wheezing/rhonchi/rales CV: RRR, no murmur, no pretibial edema Abd: normal BS, soft, non-tender Ext: no cyanosis, no calf tenderness; right hip with surgical incision with good wound edge approximation, some steri strips still in place, proximal incision site with deroofed scab with slight erythema, no discharge or fluctuance Neuro: A&O x 3, +reproducible reported dizziness with quick movement of head left to right with very slight lateral nystagmus noted, no other focal deficits noted, normal affect Skin: warm, dry Results & Data Results & Data Vital Signs (Past 12 Hours) Vital Signs Temp Pulse Pulse Resp BP BP Pulse Ox 03/07/25 17:00 59 L 16 97/54 L 99 03/07/25 16:09 63 03/07/25 16:00 63 18 109/63 98 03/07/25 15:35 65 27 H 105/57 L 98 03/07/25 15:00 60 21 108/60 100 03/07/25 14:30 69 20 116/62 98 03/07/25 12:20 36.4 C L 79 18 100/52 L 100 O2 Del Method 03/07/25 17:00 03/07/25 16:09 03/07/25 16:00 03/07/25 15:35 03/07/25 15:00 03/07/25 14:30 Room Air 03/07/25 12:20 Room Air Laboratory Results Short CBC 03/07/25 Range/Units 13:39 WBC 6.01 (4.8-10.8) K/ul Hgb 14.3 (12.0-16.0) g/dl Hct 45.2 (37.0-47.0) % Plt Count 439 H (130-400) K/uL BMP 03/07/25 13:39 Sodium 141 Potassium 3.9 Chloride 105 Carbon Dioxide 27 BUN 8 Creatinine 0.61 Glucose 63 L Calcium 9.9 Liver Function 03/07/25 Range/Units 13:39 Total Bilirubin 0.3 (0.2-1.0) mg/dl AST 26 (13-39) U/L ALT 43 (7-52) U/L Alkaline Phosphatase 81 (34-104) U/L Albumin 4.1 (3.4-5.0) gm/dl Urine 03/07/25 Range/Units 16:45 Urine Color Yellow Urine Appearance Clear (Clear) Urine pH 5.5 (4.5-7.5) Ur Specific [place] 1.009 (1.000-1.030) Urine Protein Negative (Negative) Urine Glucose (UA) Negative (Negative) Diagnostic Findings Chest X-Ray 03/07/25 12:25 XR chest 1V portable CLINICAL HISTORY: dizziness COMPARISON STUDY: None FINDINGS: Heart size and pulmonary vasculature are normal. No consolidation or pleural effusion. No pneumothorax. There is mild scoliosis. IMPRESSION: No acute findings. ACT 112: Negative or not required by law. Electronically signed by: Mikel Lopez M.D. 03/07/2025 2:13 PM
--- NOTE | 2025-03-07 19:34 | CT Scan Report ---
Clinical History: Dizziness. Technique: Axial computed tomography images were obtained of the brain from the vertex to the skull base without intravenous contrast. Findings: There is no sign of intracranial hemorrhage. There is normal dominguez-white matter differentiation with no sign of acute or old infarction. No midline shift or other form of herniation is identified. There is no hydrocephalus. No obvious mass lesion is seen on this noncontrast examination. The visualized portions of the orbits and paranasal sinuses appear unremarkable. The mastoid air cells appear clear Impression: Unremarkable noncontrast CT of the brain Electronically signed by Den Chen 03-07-2025 7:34 PM
[2025-03-07] MEDS ORDERED: ONDANSETRON INJ 2 MG/ML 2 ML VIAL IV PRN (20:26)
[2025-03-07] MEDS ORDERED: POLYETHYLENE (MIRALAX) 17 GM PACK PO PRN (20:26)
[2025-03-07] MEDS ORDERED: IBUPROFEN 600 MG TAB PO PRN (20:26)
[2025-03-07] MEDS ORDERED: MAGNESIUM HYDROXIDE SUSP 30 ML UDC PO PRN (20:26)
[2025-03-07] MEDS: MECLIZINE HCL 25 MG TAB PO SCH (20:39)
[2025-03-07] MEDS: ASPIRIN 81 MG ECTAB PO SCH (20:39)
[2025-03-07] MEDS: ACETAMINOPHEN 500 MG TAB PO SCH (20:39)
[2025-03-08] MEDS: LEVOTHYROXINE SODIUM 50 MCG TABLET PO SCH (05:47)
[2025-03-08 05:51] LABS: Hematocrit (blood only) 37.1 % (37.0-47.0); Hemoglobin 12.1 g/dl (12.0-16.0); Mean Corpuscular Hemoglobin 30.9 pg (25.0-34.0); Mean Corpuscular Volume 94.6 fL (80.0-100.0); Platelet Count 374 K/uL (130-400); RDW Standard Deviation 41.7 fL (36.4-46.3); Red Blood Count 3.92 M/uL (4.20-5.40); White Blood Count 8.18 K/ul (4.8-10.8)
[2025-03-08 06:06] LABS: Anion Gap 8.0 (3-11); Blood Urea Nitrogen 11.0 mg/dl (6-23); Calcium 9.1 mg/dl (8.6-10.3); Carbon Dioxide 23.0 mmol/L (21-32); Chloride 110.0 mmol/L (98-107); Creatinine Clr Calc Pharmacy 161.6 ml/min; Glucose 148.0 mg/dl (70-99(Fasting)); Potassium 4.3 mmol/L (3.5-5.1); Sodium 141.0 mmol/L (136-145)
--- NOTE | 2025-03-08 13:32 | Hospitalist Progress Note ---
Date of Service March 08, 2025 Assessment & Plan (1) Vertigo: (2) Dizziness: Plan: Patient is 49 year old female with PMH panic attacks, hypothyroidism presented to ER with c/o dizziness x 1 day. Patient states yesterday started with dizziness described as "spinning" sensation with movement of head. denies head injury, N/V Dizziness likely BPPV Chronic intermittent tinnitus --CT head:Unremarkable noncontrast CT of the brain -- Normal orthostatics Received IV fluids Meclizine as needed Symptoms improved after PT/Dannie Advised to follow-up with ENT as outpatient Also advised to monitor blood pressure regularly as patient has chronic relatively low BP Plan to discharge home today (3) History of total right hip arthroplasty: Plan: 02/15/25 right hip arthroplasty by Dr Haque On aspirin 81mg BID for DVT prophylaxis Scheduled Tylenol Continue home Ibuprofen, Tramadol prn Fall precautions (4) Hypothyroidism: Plan: Continue levothyroxine DVT Prophylaxis SCDs CODE STATUS Full code Disposition Home Admission and Anticipated Discharge Date Admission Date: March 07, 2025 Subjective Patient is seen and examined at bedside Dizziness much improved after PT/Dannie Reports chronic transient tinnitus Denies any chest pain, dyspnea, nausea, vomiting, abdominal pain Plan to be discharged home today Review of Systems Review of Systems: All systems reviewed & are unremarkable except as noted in Subjective Physical Exam Physical Exam: Physical Exam: Vitals signs as noted above General Appearance:Moderately built and nourished, no apparent distress Head: normocephalic, Atraumatic Eyes: normal inspection, EOMI Neck: supple, Trachea midline Respiratory/Chest: Normal breath sounds, CTA, No accessory muscle use Cardiovascular: S1, S2, No murmur Abdomen/GI:Soft, Non tender, Bowel sounds present Extremities/Musculoskeletal:normal inspection, no edema Neurologic/Psych:AAOX3, grossly no focal neurological deficits Skin: normal color, warm Results & Data Results & Data Vital Signs (Past 12 Hours) Vital Signs Temp Pulse Resp BP Pulse Ox O2 Del Method 03/08/25 10:48 Room Air 03/08/25 08:00 37.1 C 95 H 16 114/62 95 Room Air Laboratory Results Short CBC 03/08/25 Range/Units 05:30 WBC 8.18 (4.8-10.8) K/ul Hgb 12.1 (12.0-16.0) g/dl Hct 37.1 (37.0-47.0) % Plt Count 374 (130-400) K/uL BMP 03/08/25 05:30 Sodium 141 Potassium 4.3 Chloride 110 H Carbon Dioxide 23 BUN 11 Creatinine 0.52 L Glucose 148 H Calcium 9.1 Urine 03/07/25 Range/Units 16:45 Urine Color Yellow Urine Appearance Clear (Clear) Urine pH 5.5 (4.5-7.5) Ur Specific [place] 1.009 (1.000-1.030) Urine Protein Negative (Negative) Urine Glucose (UA) Negative (Negative)
--- NOTE | 2025-03-08 15:30 | Discharge Summary ---
Date of Service March 08, 2025 Admission HPI Per Admitting Provider Patient is 49 year old female with PMH panic attacks, hypothyroidism presented to ER with c/o dizziness x 1 day. Patient states yesterday started with dizziness described as "spinning" sensation with movement of head. Tried OTC meclizine with some relief. Patient reports history right hip arthroplasty on 02/15/[address] Haque at [facility] [place]. States doing well after hip surgery and pain has decreased and she has stopped Celebrex and now using ibuprofen as needed and Tylenol as needed. States using Tramadol less frequently also. She has been applying collagen patch for past 4 days at [facility]. Denies head in jury or fall or history of vertigo. Patient states today with intermittent sharp pains at base of head. She reports some blurry vision and is to use reading glasses but doesn't use regularly, otherwise denies visual disturbance. Had some constipation post op but reports good BM yesterday. Denies fever/chills, diaphoresis, N/V/D, syncope, neck pain, CP, SOB, palpitations, cough, sore throat, rhinorrhea, abdominal pain, paresthesias, weakness, extremity weakness, extremity edema, rashes, urinary symptoms. Admission Exam Per Admitting Provider General: no distress, WDWN Head: normocephalic, atraumatic Eyes: PERRL, EOM's intact, conjunctiva non-injected, anicteric ENT: normal inspection external ears, nose, mucous membranes moist Neck: supple, trachea midline Lungs: clear, no respiratory distress, no wheezing/rhonchi/rales CV: RRR, no murmur, no pretibial edema Abd: normal BS, soft, non-tender Ext: no cyanosis, no calf tenderness; right hip with surgical incision with good wound edge approximation, some steri strips still in place, proximal incision site with deroofed scab with slight erythema, no discharge or fluctuance Neuro: A&O x 3, +reproducible reported dizziness with quick movement of head left to right with very slight lateral nystagmus noted, no other focal deficits noted, normal affect Skin: warm, dry Principal Diagnosis Vertigo Dizziness Discharge Data Allergies Allergy/AdvReac Type Severity Reaction Status Date / Time pseudoephedrine Allergy Unknown HEART Unverified 11/30/16 19:21 PALPATATIONS Sulfa (Sulfonamide Allergy Unknown HIVES Unverified 11/30/16 19:21 Antibiotics) Procedures Performed Laboratory Results WBC 8.18 K/ul (4.8-10.8) 03/08/25 05:30 RBC 3.92 M/uL (4.20-5.40) L 03/08/25 05:30 Hgb 12.1 g/dl (12.0-16.0) 03/08/25 05:30 Hct 37.1 % (37.0-47.0) 03/08/25 05:30 MCV 94.6 fL (80.0-100.0) 03/08/25 05:30 MCH 30.9 pg (25.0-34.0) 03/08/25 05:30 MCHC 32.6 g/dL (32.0-36.0) 03/08/25 05:30 RDW Std Deviation 41.7 fL (36.4-46.3) 03/08/25 05:30 RDW Coeff of John 12.1 % (11.5-14.5) 03/08/25 05:30 Plt Count 374 K/uL (130-400) 03/08/25 05:30 MPV 9.4 fL (9.4-12.4) 03/08/25 05:30 Immature Gran % (Auto) 0.3 % 03/07/25 13:39 Neut % (Auto) 56.6 % 03/07/25 13:39 Lymph % (Auto) 31.6 % 03/07/25 13:39 [place] % (Auto) 9.2 % 03/07/25 13:39 Eos % (Auto) 2.0 % 03/07/25 13:39 Baso % (Auto) 0.3 % 03/07/25 13:39 Neut # (Auto) 3.40 K/uL (1.40-6.50) 03/07/25 13:39 Lymph # (Auto) 1.90 K/uL (1.20-3.40) 03/07/25 13:39 [place] # (Auto) 0.55 K/uL (0.11-0.59) 03/07/25 13:39 Eos # (Auto) 0.12 K/uL (0.00-0.50) 03/07/25 13:39 Baso # (Auto) 0.02 K/uL (0.00-0.20) 03/07/25 13:39 Immature Gran # (Auto) 0.02 K/uL (0.01-0.20) 03/07/25 13:39 PT 10.9 Seconds (9.0-12.0) 03/07/25 13:39 INR 1.0 (0.9-1.1) 03/07/25 13:39 APTT 25 Seconds (21-31) 03/07/25 13:39 PTT Ratio 0.9 03/07/25 13:39 Sodium 141 mmol/L (136-145) 03/08/25 05:30 Potassium 4.3 mmol/L (3.5-5.1) 03/08/25 05:30 Chloride 110 mmol/L (98-107) H 03/08/25 05:30 Carbon Dioxide 23 mmol/L (21-32) 03/08/25 05:30 Anion Gap 8 (3-11) 03/08/25 05:30 BUN 11 mg/dl (6-23) 03/08/25 05:30 Creatinine 0.52 mg/dl (0.6-1.2) L 03/08/25 05:30 Est Cr Clr Drug Dosing 161.6 ml/min 03/08/25 05:30 eGFR 115.25 03/08/25 05:30 BUN/Creatinine Ratio 21.2 (10-20) H 03/08/25 05:30 Glucose 148 mg/dl (70-99(Fasting)) H 03/08/25 05:30 POC Glucose 109 mg/dl (70-99) H 03/07/25 18:53 Calcium 9.1 mg/dl (8.6-10.3) 03/08/25 05:30 Total Bilirubin 0.3 mg/dl (0.2-1.0) 03/07/25 13:39 AST 26 U/L (13-39) 03/07/25 13:39 ALT 43 U/L (7-52) 03/07/25 13:39 Alkaline Phosphatase 81 U/L (34-104) 03/07/25 13:39 Total Protein 8.0 gm/dl (6.0-8.3) 03/07/25 13:39 Albumin 4.1 gm/dl (3.4-5.0) 03/07/25 13:39 Globulin 3.9 gm/dl (2.5-4.0) 03/07/25 13:39 Albumin/Globulin Ratio 1.1 (0.9-2) 03/07/25 13:39 Urine Color Yellow 03/07/25 16:45 Urine Appearance Clear (Clear) 03/07/25 16:45 Urine pH 5.5 (4.5-7.5) 03/07/25 16:45 Ur Specific [place] 1.009 (1.000-1.030) 03/07/25 16:45 Urine Protein Negative (Negative) 03/07/25 16:45 Urine Glucose (UA) Negative (Negative) 03/07/25 16:45 Urine Ketones Negative (Negative) 03/07/25 16:45 Urine Blood Negative (Negative) 03/07/25 16:45 Urine Nitrite Negative (Negative) 03/07/25 16:45 Urine Bilirubin Negative (Negative) 03/07/25 16:45 Urine Urobilinogen Negative (Negative) 03/07/25 16:45 Ur Leukocyte Esterase 1+ (Negative) H 03/07/25 16:45 Urine WBC (Auto) 0-5 /hpf (0-5) 03/07/25 16:45 Urine RBC (Auto) 0-2 /hpf (0-2) 03/07/25 16:45 U Hyaline Cast (Auto) 0-2 /lpf (0-2) 03/07/25 16:45 U Epithel Cells (Auto) 0-2 /hpf (0-2) 03/07/25 16:45 Urine Bacteria (Auto) None Seen (None Seen) 03/07/25 16:45 Urine Comment 03/07/25 16:45 Impressions Chest X-Ray 03/07/25 12:25 XR chest 1V portable CLINICAL HISTORY: dizziness COMPARISON STUDY: None FINDINGS: Heart size and pulmonary vasculature are normal. No consolidation or pleural effusion. No pneumothorax. There is mild scoliosis. IMPRESSION: No acute findings. ACT 112: Negative or not required by law. Electronically signed by: Mikel Lopez M.D. 03/07/2025 2:[address] 03/07/25 18:45 Clinical History: Dizziness. Technique: Axial computed tomography images were obtained of the brain from the vertex to the skull base without intravenous contrast. Findings: There is no sign of intracranial hemorrhage. There is normal dominguez-white matter differentiation with no sign of acute or old infarction. No midline shift or other form of herniation is identified. There is no hydrocephalus. No obvious mass lesion is seen on this noncontrast examination. The visualized portions of the orbits and paranasal sinuses appear unremarkable. The mastoid air cells appear clear Impression: Unremarkable noncontrast CT of the brain Electronically signed by Den Chen 03-07-2025 7:34 PM Ordered Studies 03/07/25 18:45 CT head/brain wo con Urgent Hospital Course (1) Vertigo: (2) Dizziness: Patient is 49 year old female with PMH panic attacks, hypothyroidism presented to ER with c/o dizziness x 1 day. Patient states yesterday started with dizziness described as "spinning" sensation with movement of head. denies head injury, N/V Dizziness likely BPPV Chronic intermittent tinnitus --CT head:Unremarkable noncontrast CT of the brain -- Normal orthostatics Received IV fluids Meclizine as needed Symptoms improved after PT/Dannie Advised to follow-up with ENT as outpatient Also advised to monitor blood pressure regularly as patient has chronic relatively low BP Plan to discharge home today (3) History of total right hip arthroplasty: 02/15/25 right hip arthroplasty by Dr Haque On aspirin 81mg BID for DVT prophylaxis Scheduled Tylenol Continue home Ibuprofen, Tramadol prn Fall precautions (4) Hypothyroidism: Continue levothyroxine DVT Prophylaxis SCDs CODE STATUS Full code Disposition Home Total Time Total Time Spent Total Time Spent (In Minutes): 51 minutes Discharge Plan Discharge Items Patient Disposition: Home - Self-Care Reason For Visit: DIZZINESS Discharge Diagnosis: Vertigo Dizziness Condition on Discharge: Good Activity: Per Instructions section Exercise/Sports: Gradually increase as tolerated Non-emergency contact: Primary Care Provider and Specialist Call non-emergency contact if: you have any medication questions, your symptoms worsen, your pain is concerning for you and you have a fever Follow-up/Referrals: Pawan Kang M.D. [Primary Care Provider] - (Date & Time 03/13/2025 2:20 PM Provider: Pawan Kang MD [facility] ) Diet: Regular Addtl Attending Provider Instructions: -- Follow-up with your primary care physician Dr. Kang on 03/13/2025 2:20 PM -- Follow-up with your ENT physician as recommended for further evaluation of vertigo/tinnitus. -- Avoid driving if you have persistence of vertigo/dizziness as recommended --Monitor your blood pressure regularly and discuss with your primary care physician for further recommendations if your blood pressure continues to be low. Seek immediate medical attention if your symptoms reoccur or worsen Please review medication list provided on discharge for any medication changes as instructed. Please call if you have any questions or problems. You can reach a [facility] hospitalist on duty at [facility] 24 hours a day by calling [phone] Pending Studies at Discharge: No Stand-Alone Forms: My [facility], Smoking Cessation Medications and DC Order Prescriptions: New meclizine 25 mg Tablet 25 mg PO TID PRN (Reason: Vertigo) Qty: 30 0RF Continued aspirin 81 mg Tablet,Delayed Release (Dr/Ec) 81 mg PO BID Rx Instructions: Post-op tramadol 50 mg tablet 50 mg PO Q6H PRN (Reason: Severe Pain (Scale Score 7-10)) lorazepam 0.5 mg tablet 0.5 mg PO TID PRN (Reason: Panic Attack(S)) levothyroxine 50 mcg tablet 50 mcg PO DAILY Discharge Orders: Discharge Order (Routine); Ordered 03/08/25 Ordered By: Juice Monet Admission Data Admit Date/Time: 03/07/25 18:23 Attending Provider: Juice Monet Admit Provider: Reji Matamoros Primary Care Provider: Pawan Kang Other Providers: [facility],Home Healthcare Other Interventions: Discharge Summary Assessment (RN) Last Done: 03/08/25 14:06
== END 2025-03-08 15:44 | disposition home or self-care (01) ==
LOC: EDINP 12:01 → ED 12:01 → SUATTDRO 18:23 → 3N 20:26 → 3W 03-08 11:13